=== PATIENT | female | born 1970 | race Caucasian/White ===

== ENCOUNTER → 2019-01-26 13:56 | Outpatient (CLI) | payer MEDICAID, SELFPAY ==
[2019-02-01 20:07] LABS: Barley, Whole Grain <0.10 kU/L (Class 0); Chicken <0.10 kU/L (Class 0); Gluten <0.10 kU/L (Class 0); Oat <0.10 kU/L (Class 0); Orange <0.10 kU/L (Class 0); Potato, White <0.10 kU/L (Class 0); Strawberry <0.10 kU/L (Class 0); Tomato <0.10 kU/L (Class 0)
[2019-02-03 11:10] LABS: Yeast <0.10 kU/L (Class 0)
[2019-02-06 13:23] LABS: Black Walnut PN
== END ==
DX: T78.40XA Allergy, unspecified, initial encounter (principal)
CPT/HCPCS: 36415; 82785; 86003